=== PATIENT | male | born 1965 | race Caucasian/White ===

== ENCOUNTER 2020-10-04 11:09 | Outpatient (REF) | payer MEDICAID, SELFPAY ==
--- NOTE | ~2020-10-04 | XR_ITS ---
EXAMINATION: RIGHT FOOT AND ANKLE X-RAY CLINICAL INFORMATION: Pain COMPARISON: None TECHNIQUE: 3 views of the right foot and 3 views of the right ankle FINDINGS: Right foot: Bone alignment is normal. No fracture or dislocation is seen. There are degenerative changes of the posterior talocalcaneal joint. Joint spaces are otherwise normal. There are small calcaneal spurs. Right ankle: Bone alignment is normal. No fracture or dislocation is seen. There are mild degenerative changes at the medial tibiotalar joint. The ankle mortise is otherwise normal. Soft tissues are normal. XR/XR ankle RT 2V IMPRESSION: Right foot: Degenerative changes of the posterior talocalcaneal joint and small calcaneal spurs. Right ankle: Degenerative changes at the medial tibiotalar joint.
--- NOTE | ~2020-10-04 | XR_ITS ---
EXAMINATION: RIGHT FOOT AND ANKLE X-RAY CLINICAL INFORMATION: Pain COMPARISON: None TECHNIQUE: 3 views of the right foot and 3 views of the right ankle FINDINGS: Right foot: Bone alignment is normal. No fracture or dislocation is seen. There are degenerative changes of the posterior talocalcaneal joint. Joint spaces are otherwise normal. There are small calcaneal spurs. Right ankle: Bone alignment is normal. No fracture or dislocation is seen. There are mild degenerative changes at the medial tibiotalar joint. The ankle mortise is otherwise normal. Soft tissues are normal. XR/XR foot RT 2V IMPRESSION: Right foot: Degenerative changes of the posterior talocalcaneal joint and small calcaneal spurs. Right ankle: Degenerative changes at the medial tibiotalar joint.
[2020-10-04 12:22] LABS: MANUAL DIFF FLAG NO
[2020-10-04 12:28] LABS: Basophils Percent Auto 0.4 % (0-2); Eosinophils Percent Auto 0.8 % (0-4); Hematocrit 42.7 % (42-52); Hemoglobin 14.7 g/dl (14.0-18.0); Imm Gran Abs Auto 0.01 X10*3/uL (0.00-0.03); Imm Gran Pct Auto 0.2 % (0.0-0.4); Lymphocytes Absolute Auto 1.8 X10*3/uL (1.2-4.9); Lymphocytes Percent Auto 33.4 % (20-40); Mean Corpuscular HGB Conc 34.4 g/dl (31.0-36.0); Mean Corpuscular Hemoglobin 31.4 pg (27.0-33.0); Mean Corpuscular Volume 91.2 fL (80-98); Mean Platelet Volume 9.4 fL (9.4-12.4); Monocytes Absolute Auto 0.5 X10*3/uL (0.1-1.2); Monocytes Percent Auto 9.9 % (2-11); Neutrophils Absolute Auto 2.9 X10*3/uL (2.0-8.3); Neutrophils Percent Auto 55.3 % (45-73); Platelet Count 232 X10*3/uL (160-400); Red Blood Count 4.68 X10*6/uL (4.60-5.80); Red Cell Distribution Width 12.4 % (11.0-16.0); White Blood Count 5.3 X10*3/uL (4.8-10.8)
[2020-10-04 13:29] LABS: Erythrocyte Sedimentation Rate 3 MM/HR (0-15)
[2020-10-04 13:42] LABS: Alanine Aminotransferase 19 U/L (0-40); Albumin Level 4.6 g/dL (3.5-5.0); Alkaline Phosphatase 103 U/L (39-117); Anion Gap 12 (12-20); Aspartate Amino Transferase 22 U/L (5-37); Bilirubin Total 0.4 mg/dL (0.0-1.0); Blood Urea Nitrogen 19 mg/dL (9-16); C Reactive Protein 1.21 mg/dL (< or = 0.50); Calcium 9.4 mg/dL (8.4-10.2); Carbon Dioxide 26 mmol/L (22-29); Chloride 105 mmol/L (96-108); Estimated Glomerular Filt Rate > 60; Glucose Random 101 mg/dL (60-115); Potassium 4.4 mmol/L (3.3-5.1); Rheumatoid Factor < 15.0 IU/mL (<15.0); Sodium 139 mmol/L (135-145); Total Protein 7.1 g/dL (6.5-8.0)
[2020-10-04 14:05] LABS: Thyroid Stimulating Hormone 1.87 uIU/mL (0.32-4.0)
[2020-10-05 12:16] LABS: Lyme Abs Screen <0.90 index
[2020-10-05 22:46] LABS: Prot Elec - Albumin 4.5 g/dL (3.8-4.8); Prot Elec - Alpha1 0.2 g/dL (0.2-0.3); Prot Elec - Alpha2 0.6 g/dL (0.5-0.9); Prot Elec - Beta 1 0.4 g/dL (0.4-0.6); Prot Elec - Beta 2 0.4 g/dL (0.2-0.5); Prot Elec - Gamma 0.9 g/dL (0.8-1.7); Prot Elec - Total Protein 6.9 g/dL (6.1-8.1)
[2020-10-07 08:57] LABS: IgA 205 mg/dL (47-310); IgG 907 mg/dL (600-1640); IgM 144 mg/dL (50-300)
[2020-10-08 14:17] LABS: Vitamin D 25-OH, D2 <4 ng/mL; Vitamin D 25-OH, D3 21 ng/mL; Vitamin D 25-OH, Total 21 ng/mL (30-100)
[2020-10-08 22:22] LABS: Cyclic Citrullinated Peptide <16 UNITS
== END 2020-10-04 11:10 | disposition home or self-care (01) ==
LOC: HO.XRAY 11:09
PROVIDERS: PCP Internal Medicine; Visit Provider Student in an Organized Health Care Education/Training Program
DX: M25.50 Pain in unspecified joint (principal); M79.671 Pain in right foot
CPT/HCPCS: 36415; 73600; 73620; 80053; 82306; 82784; 84155; 84165; 84443; 85025; 85652; 86140; 86200; 86334; 86431; 86617; 86618; 99202

== ENCOUNTER 2020-11-05 12:13 | Outpatient (REF) | payer MEDICAID, SELFPAY ==
[2020-11-05 13:25] LABS: Blood Urea Nitrogen 17 mg/dL (9-16); Estimated Glomerular Filt Rate > 60
== END 2020-11-05 12:14 | disposition home or self-care (01) ==
LOC: HO.LAB 12:13
PROVIDERS: Visit Provider Psychiatry & Neurology Neurology
DX: G40.909 Epilepsy, unspecified, not intractable, without status epilepticus (principal)
CPT/HCPCS: 36415; 82565; 84520

== ENCOUNTER 2020-11-19 11:01 | Outpatient (REF) | payer MEDICAID, SELFPAY ==
--- NOTE | ~2020-11-19 | MR_ITS ---
MR BRAIN WITHOUT AND WITH CONTRAST CLINICAL INFORMATION: Epilepsy. COMPARISON: None available. TECHNIQUE: Multiplanar, multisequence MRI of the brain was obtained before and after the intravenous administration of 7.5 mL Gadavist. FINDINGS: There is no pathologic intracranial enhancement. There is mild chronic microangiopathy. Hippocampi are symmetric in size and normal in morphology without evidence of intrinsic signal abnormality. There is no hydrocephalus, extra-axial surface collection, or herniation. The major flow voids at the skull base are preserved. There is no acute infarct on diffusion-weighted imaging. There is no intracranial hemorrhage on the gradient recalled echo acquisition. The midline structures are normal. The cerebellar tonsils are normally positioned. The cerebellum and brainstem are normal. The craniocervical junction is normal. Osseous marrow signal intensity is homogenous. Bilateral ocular staphylomas. MR/MR head/brain wo/w con IMPRESSION: - No acute intracranial findings. No enhancing lesions. No mesial temporal sclerosis. - Mild chronic microangiopathy.
== END 2020-11-19 11:02 | disposition home or self-care (01) ==
LOC: HO.MRI 11:01
PROVIDERS: PCP Internal Medicine; Visit Provider Psychiatry & Neurology Neurology
DX: G40.909 Epilepsy, unspecified, not intractable, without status epilepticus (principal)
CPT/HCPCS: 70553; A9585

== ENCOUNTER 2020-12-06 12:00 | Outpatient (REF) | payer MEDICAID, SELFPAY ==
--- NOTE | 2020-12-06 12:08 | EEG_ITS ---
This is a 24-hour ambulatory EEG. The patient kept a diary and did not report any significant symptoms. Background EEG rhythm during wakefulness was low to medium amplitude, fast beta and alpha with no obvious asymmetry or paroxysmal tendency. The patient transitioned into stage N1 to N3 sleep with no significant abnormality. Throughout the study, the patient had episodes of FIRDA with 1 brief episodes that seems like polyspike and wave discharges. Cardiac lead did not reveal any significant abnormality. IMPRESSION: Possibly abnormal EEG suggestive of underlying tendency for generalized seizure disorder. MD ALETHEA Tiwari/CAP[facility] / [id number]
== END 2020-12-06 12:01 | disposition home or self-care (01) ==
LOC: HO.NEURO 12:00
PROVIDERS: Visit Provider Psychiatry & Neurology Neurology
DX: G40.909 Epilepsy, unspecified, not intractable, without status epilepticus (principal)
CPT/HCPCS: 95708

== ENCOUNTER 2021-02-25 11:01 | Outpatient (REF) | payer MEDICAID, SELFPAY ==
--- NOTE | ~2021-02-25 | XR_ITS ---
EXAMINATION: XR CHEST CLINICAL INFORMATION: Cough. COMPARISON: None TECHNIQUE: 2 views of the chest were obtained. FINDINGS: The lungs are clear. The cardiomediastinal silhouette is normal in size. There is no pleural effusion or pneumothorax. No acute osseous abnormality. XR/XR chest 2V IMPRESSION: No acute cardiopulmonary findings.
== END 2021-02-25 11:02 | disposition home or self-care (01) ==
LOC: HO.XRAY 11:01
PROVIDERS: Absent Provider Internal Medicine; PCP Internal Medicine; Visit Provider Emergency Medicine
DX: R05.9 Cough, unspecified (principal)
CPT/HCPCS: 71046

== ENCOUNTER 2021-04-23 08:09 | Outpatient (REF) | payer MEDICAID, SELFPAY ==
--- NOTE | ~2021-04-23 | XR_ITS ---
EXAMINATION: XR CHEST CLINICAL INFORMATION: Productive cough. Chills. Pleuritic chest pain. COMPARISON: Chest radiograph 02/25/2021. TECHNIQUE: PA and lateral chest radiographs with repeat PA view. FINDINGS: Normal appearance of the cardiomediastinal structures. No effusions or pneumothoraces. No focal pulmonary consolidation is identified. Normal pattern of pulmonary vasculature. XR/XR chest 2V IMPRESSION: *No acute cardiopulmonary abnormalities.
== END 2021-04-23 08:10 | disposition home or self-care (01) ==
LOC: HO.XRAY 08:09
PROVIDERS: PCP Internal Medicine; Visit Provider Emergency Medicine
DX: R05.9 Cough, unspecified (principal)
CPT/HCPCS: 71046

== ENCOUNTER 2021-07-22 11:00 | Emergency (ER) | payer MEDICAID, SELFPAY ==
--- NOTE | ~2021-07-22 | CT_ITS ---
EXAMINATION: CT ABDOMEN AND PELVIS WITH CONTRAST CLINICAL INFORMATION: Abdominal pain COMPARISON: None TECHNIQUE: Multidetector volumetric images were obtained from the superior aspect of the liver through the pubic symphysis following administration 85 mL of Omnipaque 350 intravenous contrast. Sagittal and coronal reformatted images were obtained on the technologist's workstation. Oral contrast: No This CT examination was performed using dose optimization techniques as appropriate, variously including the following: *Automated exposure control *Adjustment of mA and/or kV according to patient size (this includes techniques or standardized protocols for targeted exams where dose is matched to indication/reason for exam; i.e. extremities or head) *Use of iterative reconstruction technique DLP: 490 mGy-cm FINDINGS: LUNG BASES: The visualized lung bases are unremarkable. LIVER, GALLBLADDER, AND BILIARY TREE: The liver is enlarged measuring 19.6 cm in greatest length and demonstrates decreased attenuation consistent with hepatic steatosis. No focal hepatic lesion or biliary ductal dilatation is present. The gallbladder is unremarkable with no evidence of radiopaque gallstones, gallbladder wall thickening, or obvious pericholecystic inflammatory changes. PANCREAS: Unremarkable. SPLEEN: Unremarkable. ADRENAL GLANDS: Unremarkable. KIDNEYS AND URETERS: The kidneys are normal in size, shape, and attenuation. No hydronephrosis, hydroureter, or calculi seen. No perinephric stranding. BLADDER: Unremarkable. GASTROINTESTINAL TRACT: A small hiatal hernia is present. The small and large bowel are unremarkable. The appendix is unremarkable. ABDOMINAL WALL: No significant hernia is appreciated. LYMPH NODES: Normal. VASCULAR: Unremarkable. PELVIC VISCERA: Unremarkable. OSSEOUS STRUCTURES: Unremarkable. Bone islands are present in the left femoral head. CT/CT abdomen pelvis w con IMPRESSION: Enlarged fatty liver. No other abnormality is seen. Fleischner guidelines were followed.
[2021-07-22 11:06] VITALS: BP 169/98; PULSE 73; O2SAT 99
[2021-07-22 12:11] VITALS: BP 155/98; PULSE 76; RESP 18; TEMP 36.8; O2SAT 97; BMI 29.9
[2021-07-22 12:48] LABS: MANUAL DIFF FLAG NO
[2021-07-22 12:51] LABS: Basophils Percent Auto 0.2 % (0-2); Eosinophils Percent Auto 0.1 % (0-4); Hematocrit 45.7 % (42.0-52.0); Imm Gran Abs Auto 0.05 X10*3/uL (0.00-0.03); Imm Gran Pct Auto 0.4 % (0.0-0.4); Lymphocytes Absolute Auto 1.5 X10*3/uL (1.2-4.9); Mean Corpuscular Hemoglobin 31.6 pg (27.0-33.0); Mean Corpuscular Volume 90.1 fL (80.0-98.0); Mean Platelet Volume 9.5 fL (9.4-12.4); Monocytes Absolute Auto 1.2 X10*3/uL (0.1-1.2); Monocytes Percent Auto 8.7 % (2-11); Neutrophils Absolute Auto 10.6 x10*3/uL (2.0-8.3); Neutrophils Percent Auto 79.6 % (45-73); Platelet Count 246 X10*3/uL (160-400); Red Blood Count 5.07 X10*6/uL (4.60-5.80); Red Cell Distribution Width 12.5 % (11.0-16.0); White Blood Count 13.3 X10*3/uL (4.8-10.8)
[2021-07-22 13:06] LABS: Anion Gap 14 (12-20); Blood Urea Nitrogen 12 mg/dL (9-16); Calcium 9.6 mg/dL (8.4-10.2); Carbon Dioxide 27 mmol/L (22-29); Chloride 101 mmol/L (96-108); Creatinine Clr Calc Pharmacy 85.7; Estimated Glomerular Filt Rate > 60; Glucose Random 122 mg/dL (60-115); Potassium 4.5 mmol/L (3.3-5.1); Sodium 137 mmol/L (135-145)
--- NOTE | 2021-07-22 15:47 | ED_ITS ---
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 Patient states that for the last 3 days, he has had abdominal pain and has not been able to have a bowel movement. Patient denies any dizziness, lightheadedness, nausea, vomiting, fever, chills, blurry vision, double vision, loss of vision, chest pain, difficulty breathing, shortness of breath, back pain, night sweats, pain with urination, increased urinary frequency, increased urinary urgency, blood in his urine or stool, syncope or a near syncopal episode, recent trauma or falls, bowel incontinence, bladder incontinence, bowel retention, bladder retention, or any other complaints at this time. MD elicited complaint: abdominal pain Pertinent past history: constipation Onset (ago): day(s) Pain Consistency: constant Location: diffuse Severity: mild Pain scale (0-10): 3 Quality: dull Radiation: none Migration to: no migration Exacerbating factors: nothing Relieving factors: nothing Associated symptoms: denies other symptoms Treatments prior to arrival: NSAIDs Related Data Home Medications Medication Instructions Recorded Confirmed acetaminophen 500 mg tablet 500 mg PO Q6H PRN 10/04/20 (Tylenol Extra Strength) cyclobenzaprine 10 mg tablet 10 mg PO BEDTIME 10/04/20 gabapentin 300 mg capsule 300 mg PO BID 10/04/20 levothyroxine 50 mcg capsule 50 mcg PO DAILY 10/04/20 (Tirosint) lisinopril 10 mg tablet 10 mg PO DAILY 10/04/20 quetiapine 100 mg tablet (Seroquel) 100 mg PO DAILY 10/04/20 rosuvastatin 10 mg tablet (Crestor) 10 mg PO DAILY 10/04/20 trazodone 50 mg tablet 50 mg PO BEDTIME PRN 10/04/20 Allergies Allergy/AdvReac Type Severity Reaction Status Date / Time phenytoin Allergy Intermediate rash Verified 10/04/20 11:18 Review of Systems Constitutional: Reports no additional constitutional complaints, Denies chills, Denies fever(s) and Denies night sweats Eyes: Reports no additional eye complaints, Denies blurry vision, Denies change in vision, Denies diplopia, Denies eye discharge, Denies loss of vision and Denies eye pain Denies dizziness Cardiovascular: Reports no additional cardiovascular complaints, Denies chest pain, Denies lightheadedness, Denies Loss of Consciousness and Denies dyspnea Respiratory: Reports no additional respiratory complaints and Denies dyspnea Gastrointestinal: Reports no additional gastrointestinal complaints, Reports abdominal pain, Denies melena, Denies hematochezia, Denies change in bowel habits and Reports constipation Genitourinary: Reports no additional male genitourinary complaints, Denies hematuria, Denies oliguria, Denies difficulty urinating, Denies dysuria, Denies urinary frequency, Denies urinary hesitancy, Denies urinary incontinence and Denies urinary urgency Musculoskeletal: Reports no additional musculoskeletal complaints, Denies numbness and Denies tingling Denies dizziness, Denies loss of vision, Denies numbness and Denies tingling Psychiatric: Reports no additional psychiatric complaints Endocrine: Reports no additional endocrine complaints Hematologic/Lymphatic: Reports no additional hematologic/lymphatic complaints Allergic/Immunologic: Reports no additional allergic/immunologic complaints PMFSH Past Medical History Attestation statement: The following information was validated with the patient. Source: old records reviewed Medical History Depression Hyperlipidemia Hypertension Hypothyroidism Family History Family History Father Diabetes HTN (hypertension) Mother Diabetes HTN (hypertension) Social History Social History Alcohol intake: never Patient Tobacco Use Status: Never used Tobacco Advance Directives: No Advance Directives Information Provided: No Physical Exam ED Vital Signs: Vital Signs - 24 hr 07/22/21 12:11 07/22/21 15:48 Temperature 98.2 F Pulse Rate 76 70 Respiratory Rate 18 17 Blood Pressure 155/98 H Pulse Oximetry 97 97 BMI result Body Mass Index 29.9 Const General: cooperative, no acute distress, alert and awake Nutritional Appearance: well nourished Orientation/consciousness: patient oriented x3 Limitations: no limitations HENMT Head: Yes normal to inspection and Yes atraumatic Ears: hearing grossly normal bilaterally and external ears normal General nose exam: Normal external nose present, no nasal discharge noted and no epistaxis Face and sinus: Yes normal facial exam, No abrasion and No laceration Mouth: Normal oral and palatal mucosa present, no drooling and no muffled voice Eyes General: appearance normal, both eyes and all related structures Periorbital: periorbital findings normal Eyelids: Yes eyelids normal Conjunctivae: conjunctivae normal Pupils: Equal, round and reactive pupils present EOM: EOMs intact bilaterally Neck Neck: Yes normal visual inspection, Yes full ROM and Yes no lymphadenopathy Chest Chest palpation & inspection: normal inspection of the chest Resp Effort & Inspection: normal respiratory effort and able to speak in complete sentences Auscultation: clear to auscultation bilaterally Cardio Rate: regular rate Rhythm: regular rhythm GI Inspection: Yes normal to inspection Palpation (GI): Soft to palpation, not firm, Tenderness to palpation present ( GI) in the LLQ, in the RLQ, in the LUQ and in the RUQ, no guarding and not rigid Neuro General: patient oriented x3 and moves all extremities Cranial nerves: Yes Equal, round and reactive pupils present Cognition (Neuro): normal cognition Motor exam (neuro): 5/5 motor strength present throughout Sensory Exam: Normal double simultaneous stimulation for sensation Coordination: [id number] test normal Extrem General: Yes normal to inspection, Yes full ROM and Yes capillary refill normal Psych Appearance: grossly normal Mental Status: mental status grossly normal Affect: normal affect Attitude: cooperative Thought process: Normal thought process present Thought content: Normal thought content present Insight: Good insight present (Psych) MDM - Abdominal Pain MDM Narrative Medical decision making narrative: Patient is a 55 year old male presenting to the emergency department today with abdominal pain. Patient's physical exam showed diffuse abdominal pain but was otherwsie unremarkable Patient's blood work showed an elevated white blood cell count but was otherwise unremarkable. Patient's abdominal CT showed no acute process. I explained my physical exam findings as well as all test results to the patient. I answered all questions asked by the patient. Patient received IV Protonix and PO Maalox which he stated helped his abdominal pain significantly. I stressed the importance of the patient taking his medication as prescribed. I stressed the importance of the patient following up with his primary care provider. I stressed the importance of the patient returning to the emergency department immediately if his symptoms were to worsen or if he were to develop any dizziness, shortness of breath, difficulty breathing, chest pain, blurry vision, loss of vision, nausea, vomiting, abdominal pain, fever, chills, back pain, or any other complaints. Patient verbalized agreement and understanding with this treatment plan and discharge. Differential Diagnosis Differential diagnosis: Likely abdominal pain, gastroenteritis and gastritis Medical Records Attestation: I reviewed the patient's medical records. Lab Data Attestation: I reviewed the patient's lab results. Result diagrams: 07/22/21 12:45 07/22/21 12:45 Labs: Lab Results 07/22/21 07/22/21 Range/Units 12:45 12:45 WBC 13.3 H (4.8-10.8) X10*3/uL RBC 5.07 (4.60-5.80) X10*6/uL Hgb 16.0 (14.0-18.0) g/dl Hct 45.7 (42.0-52.0) % MCV 90.1 (80.0-98.0) fL MCH 31.6 (27.0-33.0) pg MCHC 35.0 (31.0-36.0) g/dl RDW 12.5 (11.0-16.0) % Plt Count 246 (160-400) X10*3/uL MPV 9.5 (9.4-12.4) fL Immature Gran % (Auto) 0.4 (0.0-0.4) % Neut % (Auto) 79.6 H (45-73) % Lymph % (Auto) 11.0 L (20-40) % [place] % (Auto) 8.7 (2-11) % Eos % (Auto) 0.1 (0-4) % Baso % (Auto) 0.2 (0-2) % Lymph # (Auto) 1.5 (1.2-4.9) X10*3/uL [place] # (Auto) 1.2 (0.1-1.2) X10*3/uL Eos # (Auto) 0.0 (0.0-0.4) X10*3/uL Baso # (Auto) 0.0 (0.0-0.2) X10*3/uL Abs Immat Gran (auto) 0.05 H (0.00-0.03) X10*3/uL Absolute Neuts (auto) 10.6 H (2.0-8.3) x10*3/uL Absolute Nucleated RBC 0.000 (0.0-0.012) X10*3/uL Nucleated RBC % (auto) 0.0 (0.0-0.2) /100WBC Sodium 137 (135-145) mmol/L Potassium 4.5 (3.3-5.1) mmol/L Chloride 101 (96-108) mmol/L Carbon Dioxide 27 (22-29) mmol/L Anion Gap 14 (12-20) BUN 12 (9-16) mg/dL Creatinine 0.98 (0.5-1.4) mg/dL Estim Creat Clear Calc 85.7 Estimated GFR > 60 Random Glucose 122 H (60-115) mg/dL Calcium 9.6 (8.4-10.2) mg/dL Magnesium 2.0 (1.6-2.6) mg/dL Lipase 15 (8-78) U/L Imaging Data CT scan - abdomen: Attestation: I personally reviewed and interpreted this imaging study as follows: My impression: No acute process. Radiologist's impression: EXAMINATION: CT ABDOMEN AND PELVIS WITH CONTRAST? CLINICAL INFORMATION: Abdominal pain? COMPARISON: None? TECHNIQUE: Multidetector volumetric images were obtained from the superior aspect of the liver through the pubic symphysis following administration 85 mL of Omnipaque 350 intravenous contrast. Sagittal and coronal reformatted images were obtained on the technologist's workstation.? Oral contrast: No This CT examination was performed using dose optimization techniques as appropriate, variously including the following: *Automated exposure control *Adjustment of mA and/or kV according to patient size (this includes techniques or standardized protocols for targeted exams where dose is matched to indication/reason for exam; i.e. extremities or head) *Use of iterative reconstruction technique DLP: 490 mGy-cm FINDINGS: LUNG BASES: The visualized lung bases are unremarkable.? LIVER, GALLBLADDER, AND BILIARY TREE: The liver is enlarged measuring 19.6 cm in greatest length and demonstrates decreased attenuation consistent with hepatic steatosis. No focal hepatic lesion or biliary ductal dilatation is present. The gallbladder is unremarkable with no evidence of radiopaque gallstones, gallbladder wall thickening, or obvious pericholecystic inflammatory changes.? PANCREAS: Unremarkable.? SPLEEN: Unremarkable.? ADRENAL GLANDS: Unremarkable.? KIDNEYS AND URETERS: The kidneys are normal in size, shape, and attenuation. No hydronephrosis, hydroureter, or calculi seen. No perinephric stranding. ? BLADDER: Unremarkable.? GASTROINTESTINAL TRACT: A small hiatal hernia is present. The small and large bowel are unremarkable. The appendix is unremarkable.? ABDOMINAL WALL: No significant hernia is appreciated.? LYMPH NODES: Normal. VASCULAR: Unremarkable. PELVIC VISCERA: Unremarkable.? OSSEOUS STRUCTURES: Unremarkable. Bone islands are present in the left femoral head. CT/CT abdomen pelvis w con IMPRESSION: Enlarged fatty liver. No other abnormality is seen.? ? Fleischner guidelines were followed. Dictated By: Ambrocio Blackburn MD Signed By: Electronically signed by Ambrocio Blackburn MD 07/22/21 [id number] Discharge Plan Discharge Clinical Impression: Abdominal pain, Constipation, Chronic GERD Patient Disposition: Home, Self-Care Instructions: Constipation (DC), Indigestion (ED), Abdominal Pain (ED) Additional Instructions: Follow up with your primary care provider. Return to the emergency department immediately if your symptoms worsen or if you develop any dizziness, shortness of breath, difficulty breathing, chest pain, blurry vision, loss of vision, nausea, vomiting, abdominal pain, fever, chills, back pain, or any other complaints. Prescriptions: No Action gabapentin 300 mg capsule 300 mg PO BID 0RF rosuvastatin [Crestor] 10 mg tablet 10 mg PO DAILY 0RF lisinopril 10 mg tablet 10 mg PO DAILY 0RF levothyroxine [Tirosint] 50 mcg capsule 50 mcg PO DAILY 0RF trazodone 50 mg tablet 50 mg PO BEDTIME PRN0RF acetaminophen [Tylenol Extra Strength] 500 mg tablet 500 mg PO Q6H PRN0RF quetiapine [Seroquel] 100 mg tablet 100 mg PO DAILY 0RF cyclobenzaprine 10 mg tablet 10 mg PO BEDTIME 0RF Referrals: Joana Bonilla MD [Primary Care Provider] - 2 days Interventions: ED Discharge Assessment Last Done: 07/22/21 18:04 Discharge Date/Time: 07/22/21 18:05 Print Language: [place]
[2021-07-22 15:48] VITALS: PULSE 70; RESP 17; O2SAT 97
[2021-07-22 16:17] LABS: Lipase 15 U/L (8-78)
[2021-07-22] MEDS: Pantoprazole Sodium 40 MG/10 ML VIAL IVPUSH (16:23)
[2021-07-22] MEDS: Magnesium Hydrox/Alum Hydrox 30 ML ORAL.SUSP PO (16:23)
[2021-07-22] MEDS: iohexoL 350 MG/ML 100 ML INFUS..BTL IV (17:18)
--- NOTE | 2021-07-22 17:42 | PC.NURSE ---
AMB TO [facility] WITH [facility] GAIT.
== END 2021-07-22 18:05 | disposition home or self-care (01) ==
PROVIDERS: Physician Assistant Medical; Emergency Provider Emergency Medicine; PCP Internal Medicine
DX: R10.9 Unspecified abdominal pain (principal); K59.00 Constipation, unspecified; K21.9 Gastro-esophageal reflux disease without esophagitis; E11.9 Type 2 diabetes mellitus without complications; I10 Essential (primary) hypertension; E78.5 Hyperlipidemia, unspecified; Z79.02 Long term (current) use of antithrombotics/antiplatelets; Z79.899 Other long term (current) drug therapy
CPT/HCPCS: 36415; 74177; 80048; 83690; 83735; 85025; 99284; Q9967

== ENCOUNTER → 2021-10-10 07:11 | Outpatient (BNVA) | payer MEDICAID, SELFPAY | PROVIDERS: PCP Internal Medicine; Referring Provider Internal Medicine; Visit Provider Physician Assistant | DX: K64.9 Unspecified hemorrhoids (principal); Z12.11 Encounter for screening for malignant neoplasm of colon; Z79.899 Other long term (current) drug therapy | CPT/HCPCS: 99202; 99212 ==

== ENCOUNTER 2021-10-14 10:52 | Emergency (ER) | payer MEDICAID, SELFPAY ==
--- NOTE | 2021-10-14 11:00 | ED.GENADULT ---
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 Patient states that since yesterday, he has had body aches, nausea, and yesterday he vomited. Patient states that some individuals in his household have also been sick. Patient denies any dizziness, lightheadedness, abdominal pain, fever, chills, blurry vision, double vision, loss of vision, chest pain, difficulty breathing, shortness of breath, back pain, night sweats, pain with urination, increased urinary frequency, increased urinary urgency, blood in his urine or stool, syncope or a near syncopal episode, recent trauma or falls, bowel incontinence, bladder incontinence, bowel retention, bladder retention, or any other complaints at this time. Onset (ago): day(s) (1) Severity: mild Severity scale (1-10): 1 Relieving factors: none Exacerbating factors: none Associated symptoms: nausea/vomiting Treatments prior to arrival: none Related Data Home Medications Medication Instructions Recorded Confirmed acetaminophen 500 mg tablet 500 mg PO Q6H PRN 10/04/20 (Tylenol Extra Strength) cyclobenzaprine 10 mg tablet 10 mg PO BEDTIME 10/04/20 gabapentin 300 mg capsule 300 mg PO BID 10/04/20 levothyroxine 50 mcg capsule 50 mcg PO DAILY 10/04/20 (Tirosint) lisinopril 10 mg tablet 10 mg PO DAILY 10/04/20 quetiapine 100 mg tablet (Seroquel) 100 mg PO DAILY 10/04/20 rosuvastatin 10 mg tablet (Crestor) 10 mg PO DAILY 10/04/20 trazodone 50 mg tablet 50 mg PO BEDTIME PRN 10/04/20 Previous Rx's Medication Instructions Recorded bisacodyl 5 mg tablet,delayed 10 mg PO ONCE colonoscopy prep 1 10/10/21 release (Dulcolax (bisacodyl)) day #2 tabs docusate sodium 100 mg capsule 200 mg PO BEDTIME #60 caps 10/10/21 (Colace) hydrocortisone 1 %-pramoxine 1 % 1 appl ID BEDTIME PRN hemorrhoids 10/10/21 rectal foam (Proctofoam HC) #10 grams polyethylene glycol 3350 17 238 g PO ONCE 1 day #238 grams 10/10/21 gram/dose oral powder (Miralax) ondansetron 4 mg disintegrating 4 mg PO Q8H 3 days #9 tabs 10/14/21 tablet Allergies Allergy/AdvReac Type Severity Reaction Status Date / Time phenytoin Allergy Intermediate rash Verified 10/10/21 07:38 Review of Systems Constitutional: Constitutional: Reports no additional constitutional complaints, Reports body ache(s), Denies chills, Denies fever(s) and Denies night sweats Eyes: Eyes: Reports no additional eye complaints, Denies blurry vision, Denies change in vision, Denies diplopia, Denies eye discharge, Denies loss of vision and Denies eye pain ENT: Denies dizziness Cardiovascular: Cardiovascular: Reports no additional cardiovascular complaints, Denies chest pain, Denies lightheadedness, Denies Loss of Consciousness and Denies dyspnea Respiratory: Respiratory: Reports no additional respiratory complaints and Denies dyspnea Gastrointestinal: Gastrointestinal: Reports no additional gastrointestinal complaints, Denies abdominal pain, Denies melena, Denies hematochezia, Denies change in bowel habits, Denies change in stool character, Reports nausea and Reports vomiting Genitourinary: Genitourinary: Reports no additional male genitourinary complaints, Denies hematuria, Denies oliguria, Denies difficulty urinating, Denies dysuria, Denies urinary frequency, Denies urinary hesitancy, Denies urinary incontinence and Denies urinary urgency Musculoskeletal: Musculoskeletal: Reports no additional musculoskeletal complaints, Denies numbness and Denies tingling Neurologic: Denies dizziness, Denies loss of vision, Denies numbness and Denies tingling Psychiatric: Psychiatric: Reports no additional psychiatric complaints Endocrine: Endocrine: Reports no additional endocrine complaints Hematologic/Lymphatic: Hematologic/Lymphatic: Reports no additional hematologic/lymphatic complaints Allergic/Immunologic: Allergic/Immunologic: Reports no additional allergic/immunologic complaints PMFSH Past Medical History Attestation statement: The following information was validated with the patient. Source: old records reviewed Medical History Depression Hyperlipidemia Hypertension Hypothyroidism Family History Family History Father Diabetes HTN (hypertension) Mother Diabetes HTN (hypertension) Social History Social History Alcohol intake: never Patient Tobacco Use Status: Never used Tobacco Advance Directives: No Advance Directives Information Provided: No Physical Exam ED Vital Signs: Vital Signs - 24 hr 10/14/21 11:06 Temperature 98.4 F Pulse Rate 72 Respiratory Rate 18 Blood Pressure 145/76 H Pulse Oximetry 97 Oxygen Delivery Method Room Air BMI result Body Mass Index 28.3 Const General: cooperative, no acute distress, alert and awake Nutritional Appearance: well nourished Orientation/consciousness: patient oriented x3 Limitations: no limitations HENMT Head: Yes normal to inspection and Yes atraumatic Ears: hearing grossly normal bilaterally and external ears normal General nose exam: Normal external nose present, no nasal discharge noted and no epistaxis Face and sinus: Yes normal facial exam, No abrasion and No laceration Mouth: Normal oral and palatal mucosa present, no drooling and no muffled voice Eyes General: appearance normal, both eyes and all related structures Periorbital: periorbital findings normal Eyelids: Yes eyelids normal Conjunctivae: conjunctivae normal Pupils: Equal, round and reactive pupils present EOM: EOMs intact bilaterally Neck Neck: Yes normal visual inspection, Yes full ROM and Yes no lymphadenopathy Chest Chest palpation & inspection: normal inspection of the chest Resp Effort & Inspection: normal respiratory effort and able to speak in complete sentences Auscultation: clear to auscultation bilaterally Cardio Rate: regular rate Rhythm: regular rhythm GI Inspection: Yes normal to inspection Palpation (GI): Soft to palpation, not firm, nontender, no guarding and not rigid Neuro General: patient oriented x3 and moves all extremities Cranial nerves: Yes Equal, round and reactive pupils present Cognition (Neuro): normal cognition Motor exam (neuro): 5/5 motor strength present throughout Sensory Exam: Normal double simultaneous stimulation for sensation Coordination: [id number] test normal Extrem General: Yes normal to inspection, Yes full ROM and Yes capillary refill normal Psych Appearance: grossly normal Mental Status: mental status grossly normal Affect: normal affect Attitude: cooperative Thought process: Normal thought process present Thought content: Normal thought content present Insight: Good insight present (Psych) Medical Decision Making MDM Narrative Medical decision making narrative: Patient is a 56 year old male presenting to the emergency department today with nausea, vomiting, and body aches. Patient's physical exam was unremarkable. Patient's rapid COVID-19 and influenza swabs were negative. I explained my physical exam findings as well as all test results to the patient. I answered all questions asked by the patient. Patient received ODT Zofran which he stated helped his nausea significantly. I stressed the importance of the patient taking his medication as prescribed. I stressed the importance of the patient following up with his primary care provider. I stressed the importance of the patient returning to the emergency department immediately if his symptoms were to worsen or if he were to develop any dizziness, shortness of breath, difficulty breathing, chest pain, blurry vision, loss of vision, nausea, vomiting, abdominal pain, fever, chills, back pain, or any other complaints. Patient verbalized agreement and understanding with this treatment plan and discharge. Differential Diagnosis Differential Diagnosis: nausea, vomiting, viral illness Medical Records Medical records reviewed: Yes I reviewed the patient's medical records. Lab Data Lab results reviewed: Yes I reviewed the patient's lab results. Labs: Lab Results 10/14/21 10/14/21 Range/Units 11:16 11:16 COVID-19 (DHEERAJ) Negative (Negative) COVID-19 Clin Com See Note Influenza Type A (CATRACHITA) Negative (Negative) Influenza Type B (CATRACHITA) Negative (Negative) Influenza A & B Note See Note Discharge Plan Discharge Clinical Impression: Viral illness Patient Disposition: Home, Self-Care Instructions: Viral Syndrome (ED) Additional Instructions: Follow up with your primary care provider. Return to the emergency department immediately if your symptoms worsen or if you develop any dizziness, shortness of breath, difficulty breathing, chest pain, blurry vision, loss of vision, nausea, vomiting, abdominal pain, fever, chills, back pain, or any other complaints. Prescriptions: New ondansetron 4 mg tablet,disintegrating 4 mg PO Q8H 3 Days Qty: 9 0RF No Action gabapentin 300 mg capsule 300 mg PO BID rosuvastatin [Crestor] 10 mg tablet 10 mg PO DAILY lisinopril 10 mg tablet 10 mg PO DAILY levothyroxine [Tirosint] 50 mcg capsule 50 mcg PO DAILY trazodone 50 mg tablet 50 mg PO BEDTIME PRN acetaminophen [Tylenol Extra Strength] 500 mg tablet 500 mg PO Q6H PRN quetiapine [Seroquel] 100 mg tablet 100 mg PO DAILY cyclobenzaprine 10 mg tablet 10 mg PO BEDTIME bisacodyl [Dulcolax (bisacodyl)] 5 mg tablet,delayed release (DR/EC) 10 mg PO ONCE 1 Days Qty: 2 0RF Rx Instructions: Take 2 tablets by mouth at 12:00pm the day before your procedure. polyethylene glycol 3350 [Miralax] 17 gram/dose powder 238 g PO ONCE 1 Days Qty: 238 0RF Rx Instructions: Take as directed by mouth the day before your procedure. Proctofoam HC 1-1 % foam 1 appl ID BEDTIME PRN (Reason: hemorrhoids) Qty: 10 1RF docusate sodium [Colace] 100 mg capsule 200 mg PO BEDTIME Qty: 60 5RF Referrals: Joana Bonilla MD [Primary Care Provider] - Interventions: ED Discharge Assessment Last Done: 10/14/21 12:13 Discharge Date/Time: 10/14/21 12:14 Print Language: Slovenian
[2021-10-14 11:06] VITALS: BP 145/76; PULSE 72; RESP 18; TEMP 36.9; O2SAT 97; BMI 28.3
[2021-10-14 11:40] LABS: IDNOW Serial# 9DB6401D; Influenza A Negative (Negative); Influenza B2 Negative (Negative)
[2021-10-14 11:41] LABS: COVID-19 Test Negative (Negative)
[2021-10-14] MEDS: Ondansetron ODT 4 MG TAB.RAPDIS TRANSLINGU (12:11)
--- NOTE | 2021-10-14 12:13 | PC.NURSE ---
NO ACTIVE VOMITING, GOOD SKIN TURGOR, NO CP, NO DIZZINESS, NAD. PT DRINKING PO FLUIDS.
== END 2021-10-14 12:14 | disposition home or self-care (01) ==
PROVIDERS: Physician Assistant Medical; Emergency Provider Emergency Medicine; PCP Internal Medicine
DX: B34.9 Viral infection, unspecified (principal); R05.9 Cough, unspecified; M79.10 Myalgia, unspecified site; R11.2 Nausea with vomiting, unspecified; Z20.822 Contact with and (suspected) exposure to COVID-19; Z79.899 Other long term (current) drug therapy
CPT/HCPCS: 87502; 87635; 99283

== ENCOUNTER 2022-11-04 08:13 | Outpatient (REF) | payer MEDICAID, SELFPAY ==
[2022-11-04 12:10] LABS: Anion Gap 16 (12-20); Blood Urea Nitrogen 14 mg/dL (9-16); Calcium 10.3 mg/dL (8.4-10.2); Carbon Dioxide 26 mmol/L (22-29); Chloride 104 mmol/L (96-108); Estimated Glomerular Filt Rate > 60; Glucose Random 103 mg/dL (60-115); Potassium 4.9 mmol/L (3.3-5.1); Sodium 141 mmol/L (135-145)
== END 2022-11-04 08:14 | disposition home or self-care (01) ==
LOC: HO.HHCL 08:13
PROVIDERS: Visit Provider Internal Medicine
DX: I10 Essential (primary) hypertension (principal)
CPT/HCPCS: 36415; 80048

== ENCOUNTER 2023-11-19 09:59 | Outpatient (REF) | payer MEDICAID, SELFPAY ==
[2023-11-19 12:22] LABS: Alanine Aminotransferase 19 U/L (0-40); Albumin Level 4.8 g/dL (3.5-5.0); Alkaline Phosphatase 105 U/L (39-117); Anion Gap 17 (12-20); Aspartate Amino Transferase 18 U/L (5-37); Bilirubin Total 0.3 mg/dL (0.0-1.0); Blood Urea Nitrogen 14 mg/dL (9-16); Carbon Dioxide 20 mmol/L (22-29); Chloride 104 mmol/L (96-108); Cholesterol 228 mg/dL (<200); Estimated Glomerular Filt Rate > 60; Glucose Random 103 mg/dL (60-115); HDL Cholesterol 43 mg/dL (>40); LDL Cholesterol Calculated 140 mg/dL (<100); Sodium 137 mmol/L (135-145); Total Protein 7.8 g/dL (6.5-8.0); Triglycerides 227 mg/dL (<150); Vitamin D 25-OH Total 12.7 ng/mL (>30)
[2023-11-19 12:31] LABS: Reflex LDLD? No
[2023-11-19 13:35] LABS: CT PCR NOT DETECTED (Not Detect.); NG PCR NOT DETECTED (Not Detect.)
[2023-11-20 08:43] LABS: Syphilis Screen Nonreactive (Nonreactive)
[2023-11-20 09:40] LABS: HBc Num1 0.53 S/CO (0.00-0.79); HBsAGNum1 0.39 S/CO (0.00-0.99); Hepatitis B Core Antibody Nonreactive (Nonreactive); Hepatitis B Surface Antigen Negative (Negative); ~HepC Num1 0.14 S/CO (0.00-0.79); ~Hepatitis A Antibody IgM Nonreactive (Nonreactive); ~Hepatitis B Surface Antibody REACTIVE (Nonreactive); ~Hepatitis C Antibody Nonreactive (Nonreactive)
[2023-11-21 05:23] LABS: Rubella IgG Antibody 1.87 Index
[2023-11-22 09:49] LABS: TS Negative Control Passed; TS Panel A 0; TS Panel B 0; TS Positive Control Passed; TSpotTB Negative (Negative)
[2023-11-23 19:48] LABS: HIV RNA PCR Qn Copies Not Detected Copies/mL; HIV RNA PCR Qn Log Copies Not Detected Log cps/mL
== END 2023-11-19 10:00 | disposition home or self-care (01) ==
LOC: HO.HHCL 09:59
PROVIDERS: Visit Provider Internal Medicine
DX: Z00.00 Encounter for general adult medical examination without abnormal findings (principal); I10 Essential (primary) hypertension; Z11.3 Encounter for screening for infections with a predominantly sexual mode of transmission; E78.1 Pure hyperglyceridemia
CPT/HCPCS: 36415; 80053; 80061; 82306; 84443; 86481; 86704; 86706; 86709; 86735; 86762; 86765; 86780; 86803; 87340; 87491; 87536; 87591; 87900

== ENCOUNTER 2024-06-24 10:40 | Outpatient (REF) | payer MEDICAID, SELFPAY ==
--- OUTSIDE RECORDS SUMMARY | 2024-06-24 12:12 | XMS_ITS | Encounter Summary ---
Author Organization [employer] [facility] Address [address] [place] [address] Care Team Providers Care Electrologist Name Role Phone Joana Bonilla MD Primary Care Provider + Klever Eden PharmD Unavailable [phone] Rick Romero ECG TECHNICIAN Unavailable Unavailable Encounter Details Date Type Department Care Team (Latest Contact Info) Description 03/04/2022 Abstract [facility] CONVERSIONS Dental, Provider, DDS Social History Tobacco Use Types Packs/Day Years Used Date Smoking Tobacco: Never Assessed Sex and Gender Information Value Date Recorded Sex Assigned at Male 02/24/2022 10:37 AM EDT Legal Sex Male 10:37 AM EDT Gender Identity Male 02/24/2022 10:37 AM EDT Sexual Orientation Choose not to disclose 2021 10:37 AM EDT documented as of this encounter Plan of Treatment Upcoming Encounters Date Type Department Care Team (Late st Contact Info) Description 07/18/2024 10:30 AM EDT Clinical Support [facility] MEDICINE [address] [place] [address] documented as of this encounter Visit Diagnoses Not on filedocumented in this encounter Care Teams Electrologist Relationship Specialty Start Date End Date Joana Bonilla MD [address] [place] [address] PCP - General Family Medicine 11/24/19 Klever Eden, PharmD [address] [place] [address] Pharmacist Internal Medicine 06/17/22 Rick Romero FNP [address] [place] [phone] Nurse Practitioner Family Medicine 03/06/23 documented as of this encounter
--- OUTSIDE RECORDS SUMMARY | 2024-06-24 12:12 | XMS_ITS | Encounter Summary ---
Author Organization [employer] Address [address] [facility] [address] [place] [address] Care Team Providers Care President [employer] Name Role Phone Joana Bonilla MD Primary Care Provider + Klever Eden PharmD Unavailable [phone] Rick Romero ESTIMATION MANAGER Unavailable Unavailable Reason for Visit * Reason Comments Hypertension Encounter Details Date Type Department Care Team ([facility] Contact Info) Description 06/24/2024 11:45 AM EST Office Visit [facility] MEDICINE [address] [place], [place] [phone] Joana Bonilla MD [address] [place], [place] [phone] Essential hypertension (Primary Dx); PTSD (post-traumatic stress disorder); Seizure (CMS/HCC); Dietary counseling; Class 1 obesity due to excess calories with serious comorbidity and body mass index (BMI) of 30.0 to 30.9 in adult; Exercise counseling; HTN (hypertension), benign Social History Tobacco Use Types Packs/Day Years Used Date Smoking Tobacco: Never Smokeless Tobacco: Never Tobacco Cessation:Counseling Given: Not Answered Alcohol Use Standard Drinks/Week Comments Never 0 (1 standard drink = 0.6 oz pur e alcohol) Depression Answer Date Recorded Patient Health Questionnaire-9 Score 16 11/20/2023 Patient Health Questionnaire-9 Score 16 11/20/2023 Last PHQ-9: Questionnaire Data Not on file 0 11/20/2023 Housing Stability Answer Date Recorded What is your housing situation today? I have arlyn vargas 11/11/[address] you li ve. Do you have problems with any of the following? None of the above 11/11/2023 Food Insecurity Answer Date Recorded Within the past 12 months, y ou worried that your food would run out before you got money to buy more: Never True 11/11/2023 Within the past 12 months,th e food you bought just didn't last and you didn't have enough money to get more: Never True Transportation Answer Date Recorded In the past 12 months, has l ack of transportation kept you from medical appts, meetings, work or from getting things needed for daily living? No 11/11/2023 Utilities Answer Date Recorded In the past 12 months, has t he electric, gas, oil or water company threatened to shut off services in your home? No 11/11/2023 Depression Answer Date Recorded Patient Health Questionnaire-2 Score 6 11/20/2023 Internet Access Answer Date Recorded Internet Access Q1 Yes 12/28/2023 Internet Access Q2 Not on file 12/28/2023 Sex and Gender Information Value Date Recorded Sex Assigned at Male 02/24/2022 10:37 AM EDT Legal Sex Male 10:37 AM EDT Gender Identity Male 02/24/2022 10:37 AM EDT Sexual Orientation Choose not to disclose 2021 10:37 AM EDT documented as of this encounter Last Filed Vital Signs Vital Sign Reading Time Taken Comments Blood Pressure 140/98 06/24/2024 10:17 AM EST Pulse 110 06/24/2024 9:53 AM EST Temperature 36.5 ??C (97.7 ??F) 06/24/2024 9:53 AM ES T Respiratory Rate 20 06/24/2024 9:53 AM EST Oxygen Saturation 97% 06/24/2024 9:53 AM EST Inhaled Oxygen Concentration - - Weight 80.9 kg (178 lb 4 oz) 06/24/2024 9:53 AM EST Height 163.8 cm (5' 4.5 ) 06/24/2024 9:53 AM EST Body Mass Index 30.12 06/24/2024 9:53 AM EST documented in this encounter Plan of Treatment Upcoming Encounters Date Type Department Care Team (Late st Contact Info) Description 07/18/2024 10:30 AM EDT Clinical Support [facility] MEDICINE [address] [place] [address] documented as of this encounter Goals Goal Patient Goal Type Associated Problems Recent Progress Patient-Stated? Author Blood Pressure < 140/90 Blood Pressure 140/98( 025 10:17 AM EST) No Klever Eden, Bhargav documented as of this encounter Visit Diagnoses Diagnosis Essential hypertension- Primary Unspecified essential hypertension PTSD (post-traumatic stress disorder) Posttraumatic stress disorder Seizure (CMS/HCC) Other convulsions Dietary counseling Dietary surveillance and counseling Class 1 obesity due to excess calories with serious comorbidity and body mass index (BMI) of 30.0 to 30.9 in adult Exercise counseling HTN (hypertension), benign Essential hypertension, benign documented in this encounter Additional Health Concerns Assessment Noted Time PHQ-9 Depression Total Score: 16 024 11:14 AM EDT documented as of this encounter Care Teams President [employer] Relationship Specialty Start Date End Date Joana Bonilla MD [address] [place] [id number] PCP - General Family Medicine 11/24/19 Klever Eden, PharmD [address] [place] [phone] Pharmacist Internal Medicine 06/17/22 Rick Romero FNP [address] [place] [phone] Nurse Practitioner Family Medicine 03/06/23 documented as of this encounter
--- OUTSIDE RECORDS SUMMARY | 2024-06-24 12:12 | XMS_ITS | Encounter Summary ---
Author Organization [employer] Address [address] [facility] [address] [place] [address] Care Team Providers Care Cdl Dedicated Truck Driver Name Role Phone Joana Bonilla MD Primary Care Provider + Klever Eden PharmD Unavailable [phone] Rick Romero SENIOR DATA INTEGRATION DEVELOPER Unavailable Unavailable Encounter Details Date Type Department Care Team (Late Contact Info) Description 06/05/2022 Orders Only [facility] MED & PEDS [address] [place] [address] Antonina Saldivar LPN Social History Tobacco Use Types Packs/Day Years [...] Encounters Date Type Department Care Team (Late Contact Info) Description 07/18/2024 10:30 AM EDT Clinical Support [facility] MEDICINE [address] [place], [place] [phone] documented as of this encounter Visit Diagnoses Not on filedocumented in this encounter Additional Health Concerns Assessment Noted Time PHQ-9 Depression Total Score: 1 05/26/19 23 3:31 PM EST documented as of this encounter Care Teams Cdl Dedicated Truck Driver Relationship Specialty Start Date End Date Joana Bonilla MD [address] [place] [address] PCP - General Family Medicine 11/24/19 Klever Eden, AquilesD [address] [place] [address] Pharmacist Internal Medicine 06/17/22 Rick Romero FNP [address] [place] [address] Nurse Practitioner Family Medicine 03/06/23 documented as of this encounter
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
--- OUTSIDE RECORDS SUMMARY | 2024-06-24 12:12 | XMS_ITS | Encounter Summary ---
Author Organization [facility] Address [address] [place] [address] [address] [place] [address] Care Team Providers Care Pecan Huller Name Role Phone Joana Bonilla MD Primary Care Provider + Klever Eden PharmD Unavailable [phone] Rick Romero SOFT SUGAR OPERATOR HEAD Unavailable Unavailable Encounter Details Date Type Department Care Team (Latest Contact Info) Description 04/23/2020 Abstract [facility] Dental, Provider, DDS Social History Tobacco [...] Description 07/18/2024 10:30 AM EDT Clinical Support [facility] [address] [place] [address] documented as of this encounter Visit Diagnoses Not on filedocumented in this encounter Care Teams Pecan Huller Relationship Specialty Start Date End Date Joana Bonilla MD [address] [place] [address] PCP - General Family Medicine 11/24/19 Klever Eden, PharmD [address] [place] [address] Pharmacist Internal Medicine 06/17/22 Rick Romero FNP [address] [place] [address] MARCELINA Tatum [phone] Nurse Practitioner Family Medicine 03/06/23 documented as of this encounter
--- OUTSIDE RECORDS SUMMARY | 2024-06-24 12:12 | XMS_ITS | Encounter Summary ---
Author Organization [employer] [facility] Address [address] [facility] 7t [place] [address] Care Team Providers Care Radiosonde Specialist Name Role Phone Joana Bonilla MD Primary Care Provider + Klever Eden PharmD Unavailable [phone] Rick Romero PLATE GLASS INSTALLER Unavailable Unavailable Encounter Details Date Type Department Care Team (Late Contact Info) Description 04/09/2022 Abstract [facility] ADULT DENTAL [address] [place] [address] Evan, Zoie [address] [place] [address] Social History Tobacco Use Types Packs/Day Years [...] Description 07/18/2024 10:30 AM EDT Clinical Support [facility] MEDICINE [address] [place] [address] Scheduled Orders Name Type Priority Associated Diagnoses Orde r Schedule 30,26,25,24,19,18 30,26,25,24,19,18 MANDIBULAR PARTIAL DENTURE - RESIN BASE (INCLUDING, RETENTIVE/CLASPING MATERIALS, RESTS, AND TEETH) Dental Routine [address] arting 07/20/2023 documented as of this encounter Procedures Procedure Name Priority Date/Time Associated Diagnosis Comments 20 B(V) COMPOSITE FILLING Routine 04/09/2022 12:00 AM EST 13 B(V) COMPOSITE FILLING Routine 04/09/2022 12:00 AM EST 12 B(V) COMPOSITE FILLING Routine 04/09/2022 12:00 AM EST 10 ML COMPOSITE FILLING Routine 04/09/20 12:00 AM EST 9 MDL COMPOSITE FILLING Routine 04/09/20 12:00 AM EST 8 F COMPOSITE FILLING Routine 04/09/2022 12:00 AM EST 8 L COMPOSITE FILLING Routine 04/09/2022 12:00 AM EST 8 M COMPOSITE FILLING Routine 04/09/2022 12:00 AM EST 8 D COMPOSITE FILLING Routine 04/09/2022 12:00 AM EST 7 ML COMPOSITE FILLING Routine 12:00 AM EST 5 B(V) COMPOSITE FILLING Routine 022 12:00 AM EST 4 BB(V) COMPOSITE FILLING Routine 04/09/2022 12:00 AM EST 21 B(V) COMPOSITE FILLING Routine 04/09/2022 12:00 AM EST 32 O [place] FILLING Routine 04/09/2022 12:00 AM EST 31 O AM[place] FILLING Routine 04/09/2022 12:00 AM EST 16 O [place] FILLING Routine 04/09/2022 12:00 AM EST 15 O AM[place] FILLING Routine 04/09/2022 12:00 AM EST 13 DO AM[place]AM FILLING Routine 04/09/2022 12:00 AM EST 4 O AM[place] FILLING Routine 04/09/2022 1 2:00 AM EST 2 O AM[place] FILLING Routine 04/09/2022 1 2:00 AM EST 30 EXTRACTION Routine 04/09/2022 12:00 AM EST 26 EXTRACTION Routine 04/09/2022 12:00 AM EST 25 EXTRACTION Routine 04/09/2022 12:00 AM EST 24 EXTRACTION Routine 04/09/2022 12:00 AM EST 19 EXTRACTION Routine 04/09/2022 12:00 AM EST 18 EXTRACTION Routine 04/09/2022 12:00 AM EST 17 EXTRACTION Routine 04/09/2022 12:00 AM EST 14 EXTRACTION Routine 04/09/2022 12:00 AM EST 3 EXTRACTION Routine 04/09/2022 12:00 AM EST 1 EXTRACTION Routine 04/09/2022 12:00 AM EST documented in this encounter Visit Diagnoses Not on filedocumented in this encounter Care Teams Radiosonde Specialist Relationship Specialty Start Date End Date Joana Bonilla MD [address] [place] [phone] PCP - General Family Medicine 11/24/19 Klever Eden, Bhargav [address] [place] [phone] Pharmacist Internal Medicine 06/17/22 Rick Romero FNP [address] [place] [address] Nurse Practitioner Family Medicine 03/06/23 documented as of this encounter
--- OUTSIDE RECORDS SUMMARY | 2024-06-24 12:12 | XMS_ITS | Encounter Summary ---
Author Organization [employer] Address [address] [facility] 7t [place] [address] Care Team Providers Care Cook House Laborer Name Role Phone Joana Bonilla MD Primary Care Provider + Klever Eden PharmD Unavailable [phone] Rick Romero GEOLOGICAL ENGINEER Unavailable Unavailable Reason for Visit * Reason Comments Med Refill Encounter Details Date Type Department Care Team (Late Contact Info) Description 01/18/2023 Refill [facility] MEDICINE [address] [place] [address] Joana Bonilla MD [address] [place] [address] Seizure (CMS/HCC); Anxiety Social History Tobacco Use Types Packs/Day Years Used Date Smoking Tobacco: Never Smokeless Tobacco: Never Alcohol Use Standard Drinks/Week Comments Never 0 (1 standard drink = 0.6 oz pur e alcohol) Depression Answer Date Recorded Patient Health Questionnaire-9 Score 0 11/11/2022 Depression Answer Date Recorded Patient Health Questionnaire-2 Score 0 11/11/2022 Sex and Gender Information Value Date Recorded Sex Assigned at Male 02/24/2022 10:37 AM EDT Legal Sex Male 10:37 AM EDT Gender Identity Male 02/24/2022 10:37 AM EDT Sexual Orientation Choose not to disclose 2021 10:37 AM EDT documented as of this encounter Plan of Treatment Upcoming Encounters Date Type Department Care Team (Late Contact Info) Description 07/18/2024 10:30 AM EDT Clinical Support [facility] MEDICINE [address] [place] [address] documented as of this encounter Goals Goal Patient Goal Type Associated Problems Recent Progress Patient-Stated? Author Blood Pressure < 140/90 Blood Pressure 140/98( 025 10:17 AM EST) No Klever Eden, Bhargav documented as of this encounter Visit Diagnoses Diagnosis Seizure (CMS/HCC) Other convulsions Anxiety Anxiety state, unspecified documented in this encounter Additional Health Concerns Assessment Noted Time PHQ-9 Depression Total Score: 0 11/12/19 23 9:33 AM EDT documented as of this encounter Care Teams Cook House Laborer Relationship Specialty Start Date End Date Joana Bonilla MD [address] [place] [address] PCP - General Family Medicine 11/24/19 Klever Eden, AquilesD [address] [place] [phone] Pharmacist Internal Medicine 06/17/22 Rick Romero FNP [address] [place] [phone] Nurse Practitioner Family Medicine 03/06/23 documented as of this encounter
--- OUTSIDE RECORDS SUMMARY | 2024-06-24 12:12 | XMS_ITS | Encounter Summary ---
Author Organization [employer] Address [address] [facility] 7t [place] [address] Care Team Providers Care Biodiesel Plant Manager Name Role Phone Joana Bonilla MD Primary Care Provider + Klever Eden PharmD Unavailable [phone] Rick Romero IN STORE MARKETER Unavailable Unavailable Reason for Visit * Reason Comments Pre-visit Planning (Unable to reach for PVP screening or LVM) Encounter Details Date Type Department Care Team ([facility] Contact Info) Description 06/10/2024 Patient Outreach [facility] MEDICINE [address] [place], [place] [phone] Joana Bonilla MD [address] [place], [place] [phone] Pre-visit Planning ((Unable to reach for PVP screening or LVM)) Social History Tobacco Use Types Packs/Day Years [...] the past 12 months, has t he [employer], gas, oil or water [email or web address] threatened to shut off services in your [...] AM EDT documented as of this encounter Progress Notes * Marlena Kelly - 06/10/2024 10:49 AM EST CC Marlena placed outbound call to patient to complete pre-visit planning. No answer at this time. Patient name and were not confirmed. CC unable to leave a voice message. documented in this encounter Plan of Treatment Upcoming Encounters Date Type Department Care Team (Late st Contact Info) Description 07/18/2024 10:30 AM EDT Clinical Support [facility] MEDICINE [address] [place] [phone] documented as of this encounter Goals Goal Patient Goal Type Associated Problems Recent Progress Patient-Stated? Author Blood Pressure < 140/90 Blood Pressure 140/98( 025 10:17 AM EST) No Klever Eden, PharmD documented as of this encounter Visit Diagnoses Not on filedocumented in this encounter Additional Health Concerns Assessment Noted Time PHQ-9 Depression Total Score: 16 024 11:14 AM EDT documented as of this encounter Care Teams Biodiesel Plant Manager Relationship Specialty Start Date End Date Joana Bonilla MD [address] [place] [address] PCP - General Family Medicine 11/24/19 Klever Eden PharmD [address] [place] [address] Pharmacist Internal Medicine 06/17/22 Rick Romero FNP [address] [place] [phone] Nurse Practitioner Family Medicine 03/06/23 documented as of this encounter
--- OUTSIDE RECORDS SUMMARY | 2024-06-24 12:12 | XMS_ITS | Encounter Summary ---
Author Organization [employer] [facility] Address [address] [facility] 7t [place] [address] Care Team Providers Care Watch Repair Technician Name Role Phone Joana Bonilla MD Primary Care Provider + Klever Eden PharmD Unavailable [phone] Rick Romero SILICATOR Unavailable Unavailable Encounter Details Date Type Department Care Team (Late Contact Info) Description 05/07/2022 Orders Only [facility] MEDICINE [address] [place] [address] Gardenia Irizarry LPN Social History Tobacco Use Types Packs/Day [...] 10:30 AM EDT Clinical Support [facility] MEDICINE [address] [place] [address] documented as of this encounter Visit Diagnoses Not on filedocumented in this encounter Care Teams Watch Repair Technician Relationship Specialty Start Date End Date Joana Bonilla MD [address] [place] [address] PCP - General Family Medicine 11/24/19 Klever Eden, PharmD [address] [place] [address] Pharmacist Internal Medicine 06/17/22 Rick Romero FNP [address] [place] [address] Nurse Practitioner Family Medicine 03/06/23 documented as of this encounter
--- OUTSIDE RECORDS SUMMARY | 2024-06-24 12:12 | XMS_ITS | Encounter Summary ---
Author Organization [employer] Address [address] [facility] [address] 7[address] [place] [address] Care Team Providers Care Technical Sales Specialist Name Role Phone Joana Bonilla MD Primary Care Provider + lKever Eden PharmD Unavailable [phone] Rick Romero GYNECOLOGY TEACHER Unavailable Unavailable Encounter Details Date Type Department Care Team (Latest Contact Info) Description 06/24/2024 Travel Social History Tobacco Use Types Packs/Day Years [...] Description 07/18/2024 10:30 AM EDT Clinical Support [facility] MEDICINE [address] [place] [phone] documented as of this encounter Goals Goal [...] documented as of this encounter Care Teams Technical Sales Specialist Relationship Specialty Start Date End Date Joana Bonilla MD [address] [place] [phone] PCP - General Family Medicine 11/24/19 Klever Eden, PharmD [address] [place] [phone] Pharmacist Internal Medicine 06/17/22 Rick Romero FNP [address] [place] [address] Nurse Practitioner Family Medicine 03/06/23 documented as of this encounter
--- OUTSIDE RECORDS SUMMARY | 2024-06-24 12:12 | XMS_ITS | Encounter Summary ---
Author Organization [employer] Address [address] [facility] 7t [place] [address] Care Team Providers Care Acetylene Torch Solderer Name Role Phone Joana Bonilla MD Primary Care Provider + Klever Eden PharmD Unavailable [phone] Rick Romero PONY TRIMMER Unavailable Unavailable Reason for Visit * Reason Onset Date Comments Chart prep 06/21/2024 Encounter Details Date Type Department Care Team ([facility] st Contact Info) Description 06/21/2024 Telephone [facility] MEDICINE [address] [place], [place] [phone] Joana Bonilla MD [address] [place], [place] [phone] Chart prep Social History Tobacco Use Types Packs/Day Years [...] AM EDT documented as of this encounter Miscellaneous Notes * Telephone Encounter - Leah Luz MA - 06/21/2024 10:55 AM EST Chart Prep Labs: not done Images: not done Vaccines due: yes Referrals: complete Screenings: colonoscopy Overdue care gaps: SDOH documented in this encounter Plan of Treatment Upcoming Encounters Date Type Department Care Team (Late st Contact Info) Description 07/18/2024 10:30 AM EDT Clinical Support [facility] MEDICINE [address] [place] [phone] documented as of this encounter Goals Goal [...] documented as of this encounter Care Teams Acetylene Torch Solderer Relationship Specialty Start Date End Date Joana Bonilla MD [address] [place] [phone] PCP - General Family Medicine 11/24/19 Klever Eden, AquilesD [address] [place] [phone] Pharmacist Internal Medicine 06/17/22 Rick Romero FNP [address] [place] [address] Nurse Practitioner Family Medicine 03/06/23 documented as of this encounter
--- OUTSIDE RECORDS SUMMARY | 2024-06-24 12:12 | XMS_ITS | Encounter Summary ---
Author Organization [employer] Address [address] [facility] 7t [place] [address] Care Team Providers Care Bowling Or Skating Front Desk Clerk Name Role Phone Joana Bonilla MD Primary Care Provider + Klever Eden PharmD Unavailable [phone] Rick Romero DIRECTOR OF RETAIL Unavailable Unavailable Reason for Visit * Reason Comments Med Refill Encounter Details Date Type Department Care Team ([facility] Contact Info) Description 04/13/2024 Refill [facility] MEDICINE [address] [place], [place] [phone] Joana Bonilla MD [address] [place] [address] Anxiety; Seizure (CMS/HCC) Social History Tobacco Use Types Packs/Day Years [...] Description 07/18/2024 10:30 AM EDT Clinical Support [facility] MEDICINE [address] [place] [address] documented as of this encounter Goals Goal Patient Goal Type Associated Problems Recent Progress Patient-Stated? Author Blood Pressure < 140/90 Blood Pressure 140/98( 025 10:17 AM EST) No Klever Eden, Bhargav documented as of this encounter Visit Diagnoses Diagnosis Anxiety Anxiety state, unspecified Seizure (CMS/HCC) Other convulsions documented in this encounter Additional Health Concerns Assessment Noted Time PHQ-9 Depression Total Score: 16 024 11:14 AM EDT documented as of this encounter Care Teams Bowling Or Skating Front Desk Clerk Relationship Specialty Start Date End Date Joana Bonilla MD [address] [place] [address] PCP - General Family Medicine 11/24/19 Klever Eden, AquilesD [address] [place] [phone] Pharmacist Internal Medicine 06/17/22 Rick Romero FNP [address] [place] [address] Nurse Practitioner Family Medicine 03/06/23 documented as of this encounter
[2024-06-24 14:24] LABS: Alanine Aminotransferase 39 U/L (0-40); Albumin Level 4.7 g/dL (3.5-5.0); Alkaline Phosphatase 100 U/L (39-117); Anion Gap 12 (12-20); Aspartate Amino Transferase 43 U/L (5-37); Bilirubin Total 0.4 mg/dL (0.0-1.0); Blood Urea Nitrogen 19 mg/dL (9-16); Calcium 9.4 mg/dL (8.4-10.2); Carbon Dioxide 26 mmol/L (22-29); Chloride 106 mmol/L (96-108); Cholesterol 185 mg/dL (<200); Estimated Glomerular Filt Rate > 60; Glucose Random 102 mg/dL (60-115); HDL Cholesterol 44 mg/dL (>40); Potassium 4.2 mmol/L (3.3-5.1); Sodium 140 mmol/L (135-145); Total Protein 8.1 g/dL (6.5-8.0); Triglycerides 457 mg/dL (<150)
[2024-06-24 15:03] LABS: Free T4 (Free Thyroxine) 0.84 ng/dL (0.71-1.85); Vitamin D 25-OH Total 24.7 ng/mL (>30)
[2024-06-24 16:36] LABS: Reflex LDLD? Yes
[2024-06-25 09:18] LABS: LDL Cholesterol Direct 93 mg/dL (<100)
[2024-06-25 16:24] LABS: Hepatitis B Surface Ab Qnt 272 mIU/mL (> OR = 10)
[2024-06-26 23:43] LABS: TS Negative Control Passed; TS Panel A 0; TS Panel B 0; TS Positive Control Passed; TSpotTB Negative (Negative)
[2024-06-27 08:35] LABS: HBS Num1 130.33 mIU/mL (0-7.99); HBc Num1 0.89 S/CO (0.00-0.79); HBsAGNum1 0.39 S/CO (0.00-0.99); HIV AB/AG Nonreactive (Nonreactive); HIV Num 1 0.06 S/CO (0.00-0.99); Hepatitis A Antibody IgM 0.21 Index (0-0.79); Hepatitis B Surface Antigen Negative (Negative); ~HepC Num1 0.12 S/CO (0.00-0.79); ~Hepatitis A Antibody IgM Nonreactive (Nonreactive); ~Hepatitis B Surface Antibody REACTIVE (Nonreactive); ~Hepatitis C Antibody Nonreactive (Nonreactive)
[2024-06-27 09:18] LABS: Syphilis Screen Nonreactive (Nonreactive)
[2024-06-27 10:01] LABS: HBc Num2 0.85 S/CO
[2024-06-27 10:04] LABS: HBc Num3 0.83 S/CO; Hepatitis B Core Antibody Nonreactive (Nonreactive)
== END 2024-06-24 10:41 | disposition home or self-care (01) ==
LOC: HO.HHCL 10:40
PROVIDERS: Visit Provider Internal Medicine
DX: Z00.00 Encounter for general adult medical examination without abnormal findings (principal); I10 Essential (primary) hypertension; E03.9 Hypothyroidism, unspecified; Z11.3 Encounter for screening for infections with a predominantly sexual mode of transmission; E78.1 Pure hyperglyceridemia; E55.9 Vitamin D deficiency, unspecified
CPT/HCPCS: 36415; 80053; 80061; 82306; 83721; 84439; 84443; 86317; 86481; 86704; 86706; 86709; 86735; 86762; 86765; 86780; 86803; 87340; 87389